=== PATIENT | female | born 1990 | race Caucasian/White ===

== ENCOUNTER 2016-07-02 10:16 | Emergency (ER) | payer OTHER ==
[2016-07-02 10:23] VITALS: BP 109/63; PULSE 78; TEMP 98; BMI 24.7
--- NOTE | 2016-07-02 10:52 | PDOC ---
History of Present Illness - General Chief Complaint: Vaginal Sxs Stated Complaint: IRREGULAR VAGINAL DISCHARGE Time Seen by Provider: 07/02/16 10:51 History Source: Patient Exam Limitations: No Limitations - History of Present Illness Travel History: No Initial Comments: 07/02/16 11:19 Patient was treated 2 for Chlamydia in May. Was being followed by Dr. Hernandez but insurance has changed and was unable to follow-up with him again today. has a recurrence of the "sensation" of burning vaginally, with some minor amount of discharge. Denies fevers, nausea vomiting, abdominal pain or cramping. States partner allegedly was treated for chlamydia 3 weeks ago and is not experiencing any symptoms. Patient denies itching, denies any thick drainage, states is a thinnish white drainage. Is concerned has continued or recurrence of chlamydia Quality: reports: mild, cramping Past History - Travel Traveled outside of the country in the last 30 days: No Close contact w/someone who was outside of country & ill: No - Past Medical History Allergies/Adverse Reactions: Allergies Allergy/AdvReac Type Severity Reaction Status Date / Time No Known Allergies Allergy Verified 07/02/16 10:19 Home Medications: Ambulatory Orders NK [No Known Home Medication] 07/02/16 - Psycho/Social/Smoking Cessation Hx Anxiety: No Suicidal Ideation: No Smoking History: Never smoked Have you smoked in the past 12 months: No Information on smoking cessation initiated: No Hx Alcohol Use: No Drug/Substance Use Hx: No Substance Use Type: None Review of Systems - Review of Systems Able to Perform ROS?: Yes Is the patient limited Norwegian proficient: Yes Constitutional: Yes: Symptoms Reported, See HPI, Malaise HEENTM: No: Symptoms Reported : Yes: Symptoms Reported, Discharge, Other (vaginal burnin g ) Musculoskeletal: No: Symptoms Reported Integumentary: No: Symptoms Reported Neurological: No: Symptoms reported All Other Systems: Reviewed and Negative *Physical Exam - Vital Signs Last Vital Signs Temp Pulse Resp BP Pulse Ox 98 F 78 18 109/63 100 07/02/16 10:19 07/02/16 10:19 07/02/16 10:19 07/02/16 10:19 07/02/16 10:19 - Physical Exam General Appearance: Yes: Nourished, Appropriately Dressed. No: Apparent Distress HEENT: positive: Normal ENT Inspection, TMs Normal, Pharynx Normal Neck: positive: Supple. negative: Lymphadenopathy (R), Lymphadenopathy (L) Respiratory/Chest: negative: Respiratory Distress Female Pelvic Exam: positive: normal external exam, cervical os closed (string protruding from cervix), discharge. negative: CMT Gastrointestinal/Abdominal: positive: Soft. 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 Patient understands need for following up in the next 3- 5 days for culture report. We'll hold on medication as patient has had multiple treatments for Chlamydia and gonorrhea over the past month. Given name Dr. 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, and instructed to refrain from any sexual activity until laboratory work can be obtained *DC/Admit/Observation/Transfer Diagnosis at time of Disposition: Vaginitis Qualifiers: Chronicity: acute Qualified Code(s): N76.0 - Acute vaginitis - Discharge Dispostion Disposition: HOME Condition at time of disposition: Stable Admit: No - Referrals Referrals: Alfonso Salcido MD [Staff Physician] - - Patient Instructions Printed Discharge Instructions: DI for Vaginal Itching Additional Instructions: Call [phone] to obtain reports other results of lab testing Avoid any sexual activity until symptoms resolve - Post Discharge Activity Work/School Note: Back to Work
[2016-07-02 11:33] LABS: URINE APPEARANCE CLEAR; URINE BILIRUBIN NEGATIVE (NEGATIVE); URINE BLOOD NEGATIVE (NEGATIVE); URINE COLOR LTYELLOW; URINE GLUCOSE (UA) NEGATIVE (NEGATIVE); URINE KETONE NEGATIVE (NEGATIVE); URINE LEUK ESTERASE NEGATIVE (NEGATIVE); URINE NITRITE NEGATIVE (NEGATIVE); URINE PROTEIN NEGATIVE (NEGATIVE); URINE UROBILINOGEN NEGATIVE E.U./dl (0.2-1.0)
--- NOTE | 2016-07-15 11:59 | PDOC ---
Patient Follow-up (Call Back) - Post ED Follow - Up Condition at time of discharge: Stable Disposition at time of original discharge: HOME - Disposition Additional Instructions/Notes: STARTED METRONIDAZOLE 500MG BID X 7 DAYS
== END 2016-07-02 12:24 | disposition home or self-care (01) ==
LOC: JERFT 10:16
DX: N76.0 Acute vaginitis (principal); B96.89 Other specified bacterial agents as the cause of diseases classified elsewhere
CPT/HCPCS: 36415; 81003; 84703; 87070; 87077; 87086; 87205; 87255; 87491; 87591; 99281-25